=== PATIENT | female | born 1995 | race African-American/Black ===

== ENCOUNTER 2017-03-27 13:21 | Emergency (ER) | payer OTHER ==
[~2017-03-27] VITALS: Ht 167.6 cm; Wt 77.1 kg
--- NOTE | ~2017-03-27 | CT2 ---
[facility] A Service of [facility] & [facility] RADIOLOGY TEXT RESULTS PATIENT: KEMI BELL LOCATION: [facility]FT[facility] : [birth year] UNIT #: [id number] AGE: [address]: Milagro Grissom SEX: F ORDER DR: [id number] [facility] [address] [place], [place] [address] [id number] MR#: [id number] Acc #: [id number] NAME: KEMI BELL : 1995 SEX: F STUDY DATE/TIME: 03/27/2017 15:19 UNIT: CFT[facility] ROOM: STUDY DESCRIPTION: CT Abd and Pelv W Cont Attending Physician: Milagro Grissom P.A.-C. Ordering Physician: Milagro Grissom P.A.-C. Primary Care Physician: Primary Care Physician No MEDICAL IMAGING REPORT This report is preliminary unless electronic signature is present EXAM Abdomen and pelvis CT with contrast 03/27/2017 INDICATIONS 22-year-old female with right-sided abdominal pain for a week. History of Trichomonas. Tonsillectomy. TECHNIQUE Contrast-enhanced abdomen and pelvis CT was performed. We have no comparisons. This CT exam was performed with one or more of the following radiation dose reduction techniques: automatic control, adjustment of mA and/or kV according to patient size, and iterative reconstruction. FINDINGS CT ABDOMEN: Included lung bases clear. Aorta unremarkable. Solid abdominal organs appear within normal limits. No adenopathy. CT PELVIS: Bladder unremarkable. No drainable fluid collection in the pelvis or adnexal mass. There is subtle stranding in the pericolonic fat at the junction of the ascending colon and hepatic flexure. This extends over a short distance of only about 3 to 4 cm. Imaging features are suggestive of short-segment colitis, diverticulitis, or less likely epiploic appendagitis. There is no abscess free air or bowel obstruction. The appendix to the extent visualized is nondilated but fluid-filled. Inguinal canals are unremarkable. No suspicious bone lesion. IMPRESSION 1. Subtle inflammatory change of the ascending colon at the junction with the hepatic flexure. This probably reflect short-segment colitis, diverticulitis, or less likely epiploic appendagitis. There are no complicating features such as abscess free air or bowel obstruction. 2. Appendix nondilated but fluid-filled in the right lower quadrant. [facility] A Service of [facility] & [facility] RADIOLOGY TEXT RESULTS PATIENT: KEMI BELL LOCATION: [facility] : [birth year] UNIT #: [id number] AGE: [address]: Milagro Grissom SEX: F ORDER DR: 3. The examination is otherwise negative Dictated by... Fahad Krueger M.D. THIS IS AN ELECTRONICALLY VERIFIED REPORT Fahad Krueger M.D. at 03/28/2017 11:22 PM SHAVON/junior TD: 03/28/2017 03:46 JOB #: [id number] MEDICAL IMAGING REPORT Page 1 of 1 COPY
[~2017-03-27 13:21] MED LIST: AUGMENTIN PO; MOTRIN400 MG PO; RONDEC-DM SYRU120 ML PO
[2017-03-27 13:46] LABS: URINE SOURCE CLEAN CATCH
[2017-03-27 13:52] LABS: URINE APPEARANCE TURBID; URINE BILIRUBIN NEG (NEG); URINE BLOOD NEG (NEG); URINE COLOR YELLOW; URINE GLUCOSE NEG (NEG); URINE KETONE TRACE (NEG); URINE LEUKOCYTE ESTERASE 1+ (NEG); URINE NITRATE NEG (NEG); URINE PROTEIN NEG (NEG); URINE SPECIFIC GRAVITY 1.018 (1.003-1.035); URINE UROBILINOGEN 0.2 MG/DL (NEG)
[2017-03-27 13:54] LABS: CULTURE INDICATED? YES; URINE BACTERIA AUWI 1+ (NEGATIVE); URINE SQUAMOUS EPITHELIAL CELL MOD /[HPF]
[2017-03-27 14:20] LABS: BASOPHIL% 0.8 % (0-2.5); EOSINOPHIL# 0.1 X10e3 (0-0.7); EOSINOPHIL% 3.5 % (0.0-7.0); HEMATOCRIT 38.6 % (35.0-45.0); HEMOGLOBIN 12.7 gm/dL (12.0-16.0); LYMPHOCYTE# 1.3 X10e3 (1.0-3.5); LYMPHOCYTE% 38.9 % (17.0-45.0); MEAN CELL VOLUME 91.9 FL (83-96); MEAN CORPUSCULAR HEMOGLOBIN 30.3 PG (28-34); MEAN CORPUSCULAR HGB CONC 32.9 g/dL (30-36); MEAN PLATELET VOLUME 8.8 FL (6.5-11.5); MONOCYTE# 0.4 X10e3 (0-1.0); MONOCYTE% 13.1 % (3.0-12.0); NEUTROPHIL# 1.5 X10e3 (1.5-7.1); NEUTROPHIL% 43.7 % (40-75); PLATELET COUNT 250 X10e3 (140-420); RED CELL DISTRIBUTION WIDTH 13.1 % (11.0-15.5); WHITE BLOOD COUNT 3.4 X10e3 (4.0-10.5)
[2017-03-27 14:22] LABS: DIFF IND NO
[2017-03-27 14:44] LABS: ALBUMIN SERUM 3.5 g/dL (3.5-5.0); BILIRUBIN, DIRECT 0.1 mg/dL (0.0-0.2); BILIRUBIN,TOTAL 0.1 mg/dL (0.2-2.0); CALCIUM SERUM 8.7 mg/dL (8.4-10.2); CREATININE SERUM 0.6 mg/dL (0.6-1.4); POTASSIUM 3.4 mmol/L (3.5-5.1); PROTEIN TOTAL SERUM 6.8 g/dL (6.0-8.3)
[2017-03-31 20:24] LABS: CHLAMYDIA TRACH Not Detected (Not Detected); N GONOR Not Detected (Not Detected)
== END 2017-03-27 16:20 | disposition home or self-care (01) ==
LOC: CFTX 13:21 → CED 13:21 → CFTX 14:00
PROVIDERS: Physician Assistant
DX: K52.89 Other specified noninfective gastroenteritis and colitis (principal); Z88.5 Allergy status to narcotic agent
CPT/HCPCS: 36415; 74177; 80048; 80076; 81003; 83690; 84703; 85025; 87086; 87491; 87591; 87808; 87905; 99284; J0696; Q9967